=== PATIENT | female | born 1995 | race Caucasian/White ===

== ENCOUNTER 2018-10-15 12:22 | Outpatient (CLI) | END 2018-10-15 15:10 | disposition home or self-care (01) ==

== ENCOUNTER 2018-11-06 16:27 | Inpatient (IN) | END 2018-11-10 15:45 | disposition home or self-care (01) | DRG 788 ==

== ENCOUNTER 2019-02-12 20:05 | Emergency (ER) | payer SELFPAY ==
[~2019-02-12] VITALS: Wt 79.7 kg
[~2019-02-12 20:05] MED LIST: ACET325T33 PO; IBUP800T48 PO; PREN-6 PO
== END 2019-02-12 21:57 | disposition left against medical advice (07) ==
LOC: FTE 20:05
DX: Z53.21 Procedure and treatment not carried out due to patient leaving prior to being seen by health care provider (principal)